=== PATIENT | male | born 1980 | race Caucasian/White ===

== ENCOUNTER 2021-08-10 17:41 | Emergency (ER) | payer BC, OTHER ==
[2021-08-10] MEDS ORDERED: Sodium Chloride 0.9% 10 ML Syringe FLUSH PRN (18:35)
[2021-08-10] MEDS ORDERED: Albuterol/Ipratropium 3.0-0.5 MG/3 ML Neb Soln NEB ONE (18:37)
[2021-08-10] MEDS ORDERED: Dexamethasone 4 MG/ML SDV IVPUSH ONE (18:37)
[2021-08-10] MEDS ORDERED: REMDESIVIR 200 MG in Sodium Chloride 0.9% 250 ML IV ONE (18:38)
[2021-08-10] MEDS ORDERED: LORazepam 2 MG/ML SDV IVPUSH ONE (19:44)
[2021-08-10] MEDS ORDERED: Iopamidol 755 Mg/ML 100 ML Bottle IVPUSH ONE (20:54)
[2021-08-10] MEDS ORDERED: Sodium Chloride 0.9% 10 ML Syringe FLUSH ONE (20:54)
[2021-08-10] MEDS ORDERED: Sodium Chloride 0.9% 100 ML IV SCH (21:00)
--- NOTE | 2021-08-10 21:04 | EDM.PDOC ---
<Adithya Rodríguez A - Last Filed: 08/10/21 21:34> ED HPI GENERAL MEDICAL PROBLEM - General Chief Complaint: Respiratory Problem Stated Complaint: SOB COUGH Time Seen by Provider: 08/10/21 18:35 Source of Information: Reports: Patient, Family History Limitations: Reports: No Limitations - History of Present Illness INITIAL COMMENTS - FREE TEXT/NARRATIVE: The patient presents with shortness of breath, cough and low oxygen saturations. The patient was diagnosed with COVID 19 about 10 days ago. Yesterday he came of quarantine. He was coming home and stopped in [place] at a walk in clinic because he was not feeling well. They did not do a CXR. They thought he had bronchial pneumonia. They gave him a shot of rocephin and azithromycin. On the way home he felt better. He got home and his checked his oxygen saturations and they were down in the 40s when he was walking around and the 70s when he was resting. She did not think it was working right. She brought him in to be checked. His nail beds were cyanotic and he was struggling to breath. He was brought right back to room 2 and put on a nonrebreather. His oxygen saturations did come up to the 90s. He says he has no health problems like heart disease or lung disease. He does not smoke. He did not get the regeneron or COVID vaccine. He does not have a fever or chills anymore. He has no chest pain, abdominal pain, nausea, vomiting or diarrhea. Onset: Gradual Duration: Day(s): Severity: Moderate Improves with: Reports: None Worsens with: Reports: None Associated Symptoms: Reports: Cough, Shortness of Breath. Denies: Chest Pain, Fever/Chills, Headaches, Nausea/Vomiting Treatments LOCAL BULK DRIVER: Reports: Other (see below) Other Treatments LOCAL BULK DRIVER: z-pac; nebulizer-rocephin injection - Related Data Allergies Allergy/AdvReac Type Severity Reaction Status Date / Time No Known Allergies Allergy Verified 08/10/21 18:52 Past Medical History - Infectious Disease History Infectious Disease History: Reports: Novel Coronavirus Social & Family History - Tobacco Use Tobacco Use Status *Q: Never Tobacco User - Caffeine Use Caffeine Use: Reports: Coffee - Recreational Drug Use Recreational Drug Use: No ED ROS GENERAL - Review of Systems Review Of Systems: See Below Constitutional: Reports: Malaise, Weakness, Fatigue. Denies: Fever, Chills HEENT: Reports: No Symptoms Respiratory: Reports: Shortness of Breath, Cough Cardiovascular: Reports: No Symptoms Endocrine: Reports: No Symptoms GI/Abdominal: Reports: No Symptoms : Reports: No Symptoms Musculoskeletal: Reports: No Symptoms ED EXAM, GENERAL - Physical Exam Exam: See Below Exam Limited By: No Limitations General Appearance: Alert, Moderate Distress Ears: Normal External Exam Nose: Normal Inspection Head: Atraumatic, Normocephalic Neck: Normal Inspection Respiratory/Chest: Respiratory Distress (Moderate), Decreased Breath Sounds, Rhonchi Cardiovascular: Regular Rate, Rhythm, No Edema, No Murmur GI/Abdominal: Soft, Non-Tender, No Organomegaly, No Mass Back Exam: Normal Inspection Extremities: Normal Inspection #1 Interpretation EKG Date: 08/10/21 Time: 18:59 Rhythm: Other (sinus tachycardia) Rate (Beats/Min): 110 [place]: LAD-Left [place] Deviation P-Wave: Present QRS: Normal ST-T: Other (flipped T waves in the inferior leads) QT: Normal Course - Re-Assessments/Exams Free Text/Narrative Re-Assessment/Exam: 08/10/21 21:09 I ordered oxygen, IV saline lock, EKG, CXR, labs, dexamethasone 6mg IV, duoneb, and remdesivir 200mg IV. His EKG shows a sinus tachycardia with some flipped T waves in the inferior leads. His CXR shows a near white out of both lungs. 08/10/21 21:11 His CBC looks good. His D-dimer was elevated at 6.37. His AST is elevated at 55. His troponin is elevated at 0.086. His CRP is elevated at 15.1. His BNP was normal at 63. His D-dimer is more elevated then what I would see with COVID. I ordered a CT angio of his chest. 08/10/21 21:34 I called both [facility] and they are both full. I called [facility] in [place] and they are full. I called [facility] and they will be trying to find the patient a bed. It is the end of my shift. Dr Posey to take over. Departure - Departure Disposition: DC/Tfer to [facility] 02 Clinical Impression: Pneumonia, Pneumonia due to COVID-19 virus, Pulmonary embolus, right, Hypoxia - Discharge Information Referrals: Ronnie Cornejo MD [Primary Care Provider] - Forms: ED Department Discharge <Antonietta Posey - Last Filed: 08/11/21 03:56> Course - Vital Signs Text/Narrative:: Patient was started on weight-based heparin protocol after his CTA did show that he had a small pulmonary embolus in the right middle lobe. Patient was given remdesivir. Clinically he looked well even though he had severe findings on his chest x-ray. After calling all the major hospitals in the [facility] and being informed there are no beds for admission we continued calling hospitals and we are fortunate to find availability and patient to be accepted at [facility] in [facility]. Dr. Selby and Dr. Arias are the accepting and admitting physicians. Patient was life flighted there and his vital signs have remained stable for his time in our emergency department. Patient's was very upset that [facility] does not allow family visitors and she is tearful at this time though she realizes we are fortunate to have found a bed for her very sick . Last Recorded V/S: Last Vital Signs Temp 99.9 F 08/10/21 18:20 Pulse 116 H 08/10/21 18:20 Resp 20 08/10/21 18:20 BP 150/96 H 08/10/21 18:20 Pulse Ox 98 08/10/21 18:37 - Orders/Labs/Meds Orders: Active Orders 24 hr Category Date Time Status Cardiac Monitoring [RC] . DIRECTED Care 08/10/21 18:35 Active Oxygen Therapy [RC] PRN Care 08/10/21 18:35 Active Peripheral IV Care [RC] . DIRECTED Care 08/10/21 18:36 Active RT Aerosol Therapy [RC] ASDIRECTED Care 08/10/21 18:37 Active Ang Chest [CT] Stat Exams 08/10/21 20:08 Taken Chest 1V Frontal [CR] Stat Exams 08/10/21 18:36 Taken Heparin Sodium/D5W [Heparin 25,000 Units in D5W 500 ML] Med 08/10/21 22:00 Active 25,000 units in 500 ml IV TITRATE Sodium Chloride 0.9% [Normal Saline] 100 ml Med 08/10/21 21:00 Active IV ASDIRECTED Sodium Chloride 0.9% [Saline Flush] Med 08/10/21 18:35 Active 10 ml FLUSH ASDIRECTED PRN Peripheral IV Insertion Adult [OM.PC] Stat Oth 08/10/21 18:35 Ordered Medication Orders Sodium Chloride (Normal Saline) 100 mls @ 60 mls/hr IV ASDIRECTED VIVIEN Last Admin: 08/10/21 20:56 Dose: 60 mls/hr Documented by: RODRÍGUEZ Heparin Sodium/Dextrose (Heparin 25,000 Units In D5w 500 Ml) 25,000 units in 500 mls @ 42.456 mls/hr IV TITRATE VIVIEN; Protocol Last Admin: 08/10/21 22:31 Dose: 18 units/kg/hr, 42.456 mls/hr Documented by: JAYCEE Cosigned by: FOX Sodium Chloride (Sodium Chloride 0.9% 10 Ml Syringe) 10 ml FLUSH ASDIRECTED PRN PRN Reason: Keep Vein Open Last Admin: 08/10/21 20:03 Dose: 10 ml Documented by: AYAAN Labs: Laboratory Tests 08/10/21 08/10/21 08/10/21 Range/Units 19:18 19:18 19:18 WBC 6.68 (4.23-9.07) K/mm3 RBC 4.56 L (4.63-6.08) M/mm3 Hgb 14.0 (13.7-17.5) gm/dl Hct 40.9 (40.1-51.0) % MCV 89.7 (79.0-92.2) fl MCH 30.7 (25.7-32.2) pg MCHC 34.2 (32.2-35.5) g/dl RDW Std Deviation 41.9 (35.1-43.9) fL Plt Count 331 (163-337) K/mm3 MPV 9.3 L (9.4-12.3) fl Neut % (Auto) 79.4 H (34.0-67.9) % Lymph % (Auto) 15.6 L (21.8-53.1) % [place] % (Auto) 3.6 L (5.3-12.2) % Eos % (Auto) 0.4 L (0.8-7.0) Baso % (Auto) 0.7 (0.1-1.2) % Neut # (Auto) 5.30 (1.78-5.38) K/mm3 Lymph # (Auto) 1.04 L (1.32-3.57) K/mm3 [place] # (Auto) 0.24 L (0.30-0.82) K/mm3 Eos # (Auto) 0.03 L (0.04-0.54) K/mm3 Baso # (Auto) 0.05 (0.01-0.08) K/mm3 Manual Slide Review Normal smear D-Dimer, Quantitative 6.37 H (0.19-0.50) mg/L Sodium 137 (136-145) mEq/L Potassium 3.6 (3.5-5.1) mEq/L Chloride 101 (98-107) mEq/L Carbon Dioxide 26 (21-32) mEq/L Anion Gap 13.6 (5-15) BUN 12 (7-18) mg/dL Creatinine 0.9 (0.7-1.3) mg/dL Est Cr Clr Drug Dosing 110.20 mL/min Estimated GFR (MDRD) > 60 (>60) mL/min BUN/Creatinine Ratio 13.3 L (14-18) Glucose 101 H (70-99) mg/dL Lactic Acid (0.4-2.0) mmol/L Calcium 8.7 (8.5-10.1) mg/dL Total Bilirubin 0.5 (0.2-1.0) mg/dL AST 55 H (15-37) U/L ALT 61 (16-63) U/L Alkaline Phosphatase 39 L (46-116) U/L Troponin I 0.086 H* (0.00-0.056) ng/mL C-Reactive Protein 15.1 H* (<1.0) mg/dL NT-Pro-B Natriuret Pep (0-125) pg/mL Total Protein 7.4 (6.4-8.2) g/dl Albumin 3.0 L (3.4-5.0) g/dl Globulin 4.4 gm/dL Albumin/Globulin Ratio 0.7 L (1-2) 08/10/21 08/10/21 Range/Units 19:18 19:18 WBC (4.23-9.07) K/mm3 RBC (4.63-6.08) M/mm3 Hgb (13.7-17.5) gm/dl Hct (40.1-51.0) % MCV (79.0-92.2) fl MCH (25.7-32.2) pg MCHC (32.2-35.5) g/dl RDW Std Deviation (35.1-43.9) fL Plt Count (163-337) K/mm3 MPV (9.4-12.3) fl Neut % (Auto) (34.0-67.9) % Lymph % (Auto) (21.8-53.1) % [place] % (Auto) (5.3-12.2) % Eos % (Auto) (0.8-7.0) Baso % (Auto) (0.1-1.2) % Neut # (Auto) (1.78-5.38) K/mm3 Lymph # (Auto) (1.32-3.57) K/mm3 [place] # (Auto) (0.30-0.82) K/mm3 Eos # (Auto) (0.04-0.54) K/mm3 Baso # (Auto) (0.01-0.08) K/mm3 Manual Slide Review D-Dimer, Quantitative (0.19-0.50) mg/L Sodium (136-145) mEq/L Potassium (3.5-5.1) mEq/L Chloride (98-107) mEq/L Carbon Dioxide (21-32) mEq/L Anion Gap (5-15) BUN (7-18) mg/dL Creatinine (0.7-1.3) mg/dL Est Cr Clr Drug Dosing mL/min Estimated GFR (MDRD) (>60) mL/min BUN/Creatinine Ratio (14-18) Glucose (70-99) mg/dL Lactic Acid 1.2 (0.4-2.0) mmol/L Calcium (8.5-10.1) mg/dL Total Bilirubin (0.2-1.0) mg/dL AST (15-37) U/L ALT (16-63) U/L Alkaline Phosphatase (46-116) U/L Troponin I (0.00-0.056) ng/mL C-Reactive Protein (<1.0) mg/dL NT-Pro-B Natriuret Pep 63 (0-125) pg/mL Total Protein (6.4-8.2) g/dl Albumin (3.4-5.0) g/dl Globulin gm/dL Albumin/Globulin Ratio (1-2) Meds: Medications Generic Name Dose Route Start Last Admin Trade Name Sergioq PRN Reason Stop Dose Admin Sodium Chloride 100 mls @ 60 mls/hr 08/10/21 21:00 08/10/21 20:56 Normal Saline IV 60 mls/hr ASDIRECTED VIVIEN Administration Heparin Sodium/Dextrose 25,000 units in 500 mls @ 42.456 mls/hr 08/10/21 22:00 08/10/21 22:31 Heparin 25,000 Units In D5w 500 Ml IV 18 units/kg/hr TITRATE VIVIEN 42.456 mls/hr Administration Protocol 18 UNITS/KG/HR Sodium Chloride 10 ml 08/10/21 18:35 08/10/21 20:03 Sodium Chloride 0.9% 10 Ml Syringe FLUSH 10 ml ASDIRECTED PRN Administration Keep Vein Open Discontinued Medications Generic Name Dose Route Start Last Admin Trade Name Sergioq PRN Reason Stop Dose Admin Albuterol/Ipratropium 3 ml 08/10/21 18:37 08/10/21 18:58 Albuterol/Ipratropium 3.0-0.5 Mg/3 Ml Neb Soln NEB 08/10/21 18:38 3 ml ONETIME ONE Administration Dexamethasone 6 mg 08/10/21 18:37 08/10/21 19:27 Dexamethasone 4 Mg/Ml Sdv IVPUSH 08/10/21 18:38 6 mg ONETIME ONE Administration Heparin Sodium (Porcine) 5,000 units 08/10/21 21:59 08/10/21 22:31 Heparin Sodium 5,000 Units/Ml Vial IVPUSH 08/10/21 22:00 5,000 units .BOLUS ONE Administration Remdesivir 200 mg/ Sodium 250 mls @ 250 mls/hr 08/10/21 18:38 08/10/21 19:54 Chloride IV 08/10/21 18:39 250 mls/hr ONETIME ONE Administration Iopamidol 100 ml 08/10/21 20:54 08/10/21 20:55 Iopamidol 755 Mg/Ml 100 Ml Bottle IVPUSH 08/10/21 20:55 100 ml ONETIME ONE Administration Lorazepam 0.5 mg 08/10/21 19:44 08/10/21 19:53 Lorazepam 2 Mg/Ml Sdv IVPUSH 08/10/21 19:45 0.5 mg ONETIME ONE Administration Sodium Chloride 10 ml 08/10/21 20:54 08/10/21 20:55 Sodium Chloride 0.9% 10 Ml Syringe FLUSH 08/10/21 20:55 10 ml ONETIME ONE Administration Departure - Departure Time of Disposition: 03:55 Condition: Fair Sepsis Event Note (ED) - Focused Exam Vital Signs: Vital Signs Temp Pulse Resp BP Pulse Ox Pulse Ox 08/10/21 18:37 98 08/10/21 18:20 99.9 F 116 H 20 150/96 H 61 L - My Orders Last 24 Hours: My Active Orders 08/10/21 22:00 Heparin Sodium/D5W [Heparin 25,000 Units in D5W 500 ML] 25,000 units in 500 ml IV TITRATE - Assessment/Plan Last 24 Hours: My Active Orders 08/10/21 22:00 Heparin Sodium/D5W [Heparin 25,000 Units in D5W 500 ML] 25,000 units in 500 ml IV TITRATE
[2021-08-10] MEDS ORDERED: Heparin Sodium 5,000 Units/ML Vial IVPUSH ONE (21:59)
[2021-08-10] MEDS ORDERED: Heparin Sodium/D5W 25,000 UNITS/500 ML BAG IV SCH (22:00)
--- NOTE | 2021-08-11 07:20 | CR ---
Chest: Frontal view of the chest was obtained. Comparison: Prior chest x-ray of 03/12/12. Heart is slightly enlarged. Patchy areas of increased density are seen throughout both sides of the chest. Upper mediastinum is within normal limits. No acute osseous abnormality is appreciated. Impression: 1. Diffuse increased density within both sides of the chest highly suspicious for diffuse COVID pneumonia. Please correlate. Diagnostic code #3
--- NOTE | 2021-08-11 07:25 | CT ---
CT chest Technique: Multiple axial sections were obtained through the chest. Intravenous contrast was utilized. Study has been performed as a pulmonary angiogram protocol. Comparison: Prior chest x-ray performed earlier on the same day (6:34 PM) Findings: Pulmonary arteries are not optimally opacified. Very slight diminished perfusion is seen within a portion of the segmental artery within the right middle lobe suspicious for pulmonary embolism. No other definite pulmonary emboli are seen on this exam. Thoracic aorta shows no aneurysm. Mediastinum and hilar region show scattered lymph nodes. Heart is slightly enlarged. Right ventricular size is slightly prominent. Findings are suspicious for mild right heart strain. Visualized upper abdominal structures shows nothing acute. Patchy areas of increased density are seen withn both sides of the chest compatible with fairly severe COVID pneumonia. Bone window settings were reviewed which show no acute osseous finding. Impression: 1. Small pulmonary embolism within a segmental branch within the right middle lobe. 2. Diffuse COVID pneumonia within both sides of the chest. 3. Minimal right-sided heart strain is seen. Diagnostic code #3 I agree with preliminary report from [facility], finalized on 08/10/21, 10:37 PM CDT, code 1
== END 2021-08-11 03:30 ==
LOC: JD.ED 17:41
DX: U07.1 COVID-19 (principal); J12.82 Pneumonia due to coronavirus disease 2019; I26.99 Other pulmonary embolism without acute cor pulmonale
CPT/HCPCS: 36415; 71045; 71275; 80053; 83605; 83880; 84484; 85025; 85379; 86140; 93005; 94640; 96365; 96366; 96375; 99285; J1100; J1644; J2060; J7050; Q9967; 93010; J7620-GY